=== PATIENT | female | born 1995 | race Caucasian/White ===

== ENCOUNTER 2018-11-25 11:34 | Emergency (ER) | payer MEDICAID, OTHER ==
[2018-11-25 11:45] VITALS: BP 113/76; PULSE 87; RESP 20; TEMP 99.3; O2SAT 96
--- NOTE | 2018-11-25 12:24 | C.PDOC ---
History Of Present Illness 22 y/o female presents to the ER complaining of bumps to gums which has been present over the past 2 days. Patient states that she was sick with fever and cough last week. Patient reports that these symptoms have resolved. She notes that she been placed on Augmentin for "infection" by her PMD. Denies having fever,chills, sore throat, CP, and SOB. Time Seen by Provider: 11/25/18 12:12 Chief Complaint (Nursing): ENT Problem History Per: Patient History/Exam Limitations: None Onset/Duration Of Symptoms: Days Current Symptoms Are (Timing): Still Present Severity: Moderate Past Medical History Reviewed: Historical Data, Nursing Documentation, Vital Signs Vital Signs: Last Vital Signs Temp 99.3 F 11/25/18 11:42 Pulse 87 11/25/18 11:42 Resp 20 11/25/18 11:42 BP 113/76 11/25/18 11:42 Pulse Ox 96 11/25/18 11:42 - Medical History PMH: No Chronic Diseases Surgical History: No Surg Hx Family History: States: No Known Family Hx - Social History Hx Tobacco Use: No Hx Alcohol Use: No Hx Substance Use: No - Immunization History Hx Tetanus Toxoid Vaccination: No Hx Influenza Vaccination: Yes (10/2018) Hx Pneumococcal Vaccination: No Review Of Systems Except As Marked, All Systems Reviewed And Found Negative. Constitutional: Negative for: Fever, Chills ENT: Positive for: Other (bumps to gums). Negative for: Throat Pain Cardiovascular: Negative for: Chest Pain Respiratory: Negative for: Shortness of Breath Physical Exam - Physical Exam Appears: Non-toxic, No Acute Distress Skin: Normal Color, Warm, Dry Head: Atraumatic, Normacephalic Eye(s): bilateral: Normal Inspection Nose: Normal Oral Mucosa: Moist, Other (scattered pinpoint vesicular lesions to upper and lower right buccal mucosa) Tongue: Normal Appearing, No Swelling Lips: Normal Appearing, No Swelling Gingiva: Other (scattered pinpoint vesicular lesions to gums) Throat: Normal, No Erythema, No Exudate Neck: Supple Chest: Symmetrical Cardiovascular: Rhythm Regular Respiratory: Normal Breath Sounds, No Rales, No Rhonchi, No Wheezing Gastrointestinal/Abdominal: Normal Exam, Soft, No Tenderness, No Guarding, No Rebound Neurological/Psych: Oriented x3, Normal Speech ED Course And Treatment O2 Sat by Pulse Oximetry: 96 (RA) Pulse Ox Interpretation: Normal Medical Decision Making Medical Decision Making: The patient is comfortable with patent airways. Disposition - Disposition Referrals: Ari Fuentes MD [Staff Provider] - Disposition: HOME/ ROUTINE Disposition Time: 12:35 Condition: GOOD Additional Instructions: Follow up with the medical doctor within 1-2 days. Return if worsened. Prescriptions: Mag&Al/Simet/Diphen/Lido [First Magic Mouthwash] 5 ml MM BID #1 kit predniSONE [Prednisone] 10 mg PO BID #10 tab Instructions: Gingivostomatitis, Child (DC) Forms: [employer] (Serbian) - Clinical Impression Clinical Impression: Gingivostomatitis - PA / [employer] / Resident Statement MD/DO has reviewed & agrees with the documentation as recorded. - Scribe Statement The provider has reviewed the documentation as recorded by the Scribe Maddie Byers Provider Attestation All medical record entries made by the Scribe were at my direction and personally dictated by me. I have reviewed the chart and agree that the record accurately reflects my personal performance of the history, physical exam, medical decision making, and the department course for this patient. I have also personally directed, reviewed, and agree with the discharge instructions and disposition.
== END 2018-11-25 12:46 | disposition home or self-care (01) ==
LOC: C.ER 11:34
DX: K05.10 Chronic gingivitis, plaque induced (principal)